=== PATIENT | female | born 1950 | race Caucasian/White ===

== ENCOUNTER → 2018-05-04 | Outpatient (REF) | payer MEDICARE, OTHER ==
[2018-05-04 10:32] LABS: HEMATOCRIT 42.7 % (37.0-47.0); HEMOGLOBIN 14.4 g/dl (12.0-16.0); IMMATURE GRANULOCYTES 0.3 % (0.0-5.0); MEAN CELL VOLUME 96.4 fL CALC (80.0-100.0); MEAN CORPUSCULAR HGB 32.5 pG CALC (26.0-32.0); MEAN CORPUSCULAR HGB CONC 33.7 g/L CALC (32.0-36.0); NEUT# 5.1 thou/uL (2.00-7.15); RED BLOOD COUNT 4.43 mill/uL (4.20-5.60); RED CELL DISTRI WIDTH 12.4 % (11.5-15.5)
[2018-05-04 11:06] LABS: ANION GAP 13 (6-22 (CALC)); BUN 15 mg/dL (8-23); BUN/CREATININE RATIO 19 (12-20 (CALC)); CARBON DIOXIDE 29 mmol/l (22-30); CHLORIDE 101 mmol/l (95-108); CREATININE 0.8 mg/dL (0.5-1.0); GFR > 60 ML/MIN (>=60 (CALC)); GFR FOR AFR.AMER. > 60 ML/MIN (>=60 (CALC)); POTASSIUM 4.3 mmol/l (3.5-5.1); SODIUM 139 mmol/l (137-146)
== END | disposition home or self-care (01) ==
LOC: LAB 09:25
PROVIDERS: ATTEND Nurse Practitioner Family
DX: E11.69 Type 2 diabetes mellitus with other specified complication (principal); I10 Essential (primary) hypertension; K21.0 Gastro-esophageal reflux disease with esophagitis; M06.9 Rheumatoid arthritis, unspecified; Z79.899 Other long term (current) drug therapy

== ENCOUNTER 2022-05-03 16:18 | Emergency (ER) | payer MEDICARE, OTHER ==
[~2022-05-03] VITALS: Ht 162.6 cm; Wt 70.0 kg
[2022-05-03 18:45] VITALS: BP 147/74
[2022-05-03] MEDS ORDERED: ALREX0.2 % OP (19:20)
[2022-05-03] MEDS ORDERED: ASPIRIN81 MG PO (19:21)
[2022-05-03] MEDS ORDERED: LIPITOR10 M1 PO (19:21)
[2022-05-03 20:14] VITALS: BP 147/74
== END 2022-05-03 20:28 | disposition home or self-care (01) ==
LOC: ED 16:18
DX: S09.90XA Unspecified injury of head, initial encounter (principal); U07.1 COVID-19; W07.XXXA Fall from chair, initial encounter; Z79.82 Long term (current) use of aspirin